=== PATIENT | female | born 1980 | race Caucasian/White ===

== ENCOUNTER 2018-10-16 17:04 | Emergency (ER) | payer OTHER ==
[~2018-10-16] VITALS: Ht 157.5 cm; Wt 81.6 kg
[2018-10-16] MEDS ORDERED: AVAPRO75 MG PO (17:20)
== END 2018-10-16 20:37 | disposition home or self-care (01) ==
LOC: ER 17:04
DX: M94.0 Chondrocostal junction syndrome [Tietze] (principal)